=== PATIENT | female | born 1950 | race Caucasian/White ===

== ENCOUNTER → 2024-03-23 08:02 | Outpatient (REF) | payer OTHER, SELFPAY | LOC: HWRAD 08:02 | PROVIDERS: ATTENDING PHYSICIAN Nurse Practitioner | DX: R60.0 Localized edema (principal) | CPT/HCPCS: 93970 ==

== ENCOUNTER → 2024-03-24 07:40 | Outpatient (REF) | payer OTHER, SELFPAY | LOC: EMG 07:40 | PROVIDERS: ATTENDING PHYSICIAN Nurse Practitioner | DX: G62.9 Polyneuropathy, unspecified (principal); I87.2 Venous insufficiency (chronic) (peripheral) | CPT/HCPCS: 95886; 95911 ==

== ENCOUNTER 2024-05-12 13:21 | Emergency (ER) | payer OTHER, SELFPAY ==
[2024-05-12] VITALS (8 sets, daily range): BP systolic 101–132; BP diastolic 73–82; PULSE 73–96; BMI 21.7
[2024-05-12 14:11] LABS: % Basophils 0.5 % (0-2); % Eosinophils 0.6 % (0-6); % Immature Granulocytes 0.3 % (0-0.5); % Lymphocytes 12.5 % (20.5-51.1); % Monocytes 5.4 % (1.7-9.3); % Neutrophils 80.7 % (42.2-75.2); Absolute Lymphocytes 0.8 10^3/uL (1.2-3.4); Absolute Monocytes 0.4 10^3/uL (0.1-0.6); Absolute Neutrophils 5.3 10^3/uL (1.4-6.5); Hematocrit 35.9 % (37.0-47.0); Hemoglobin 12.9 g/dL (12.0-16.0); Mean Corp Hgb Conc. 35.9 g/dL (33.0-37.0); Mean Corpuscular Hgb 33.8 pg (27.0-31.0); Mean Platelet Volume 10.5 fL (7.4-10.4); Nucleated Red Blood Cells % 0 %; Platelet Count 216 10^3/uL (130-400); Red Blood Cell Count 3.82 10^6/uL (4.20-5.40); Red Cell Dist. Width 11.4 % (11.5-14.5); White Blood Cell Count 6.5 10^3/uL (4.8-10.8)
[2024-05-12 14:37] LABS: ALT (SGPT) 24 U/L (0-35); AST (SGOT) 28 U/L (14-36); Albumin 3.8 g/dl (3.5-5.0); Alkaline Phosphatase 69 U/L (38-126); Blood Urea Nitrogen 17 mg/dl (7-17); Calcium 9.4 mg/dl (8.4-10.2); Carbon Dioxide 24 mmol/L (22-30); Chloride 104 mmol/L (98-107); Estimated Creatinine Clearance 37 ml/min; Glucose 119 mg/dl (70-99); Potassium 4.6 mmol/L (3.5-5.1); Sodium 132 mmol/L (135-145); Total Bilirubin 0.6 mg/dl (0.2-1.3); Total Protein 5.6 g/dl (6.3-8.2); eGFR 43.96
--- NOTE | 2024-05-12 15:39 | ED.GENMED ---
History of Present Illness
General
Chief Complaint: Fainting/Passed Out
Source: patient, family and ambulance crew
Exam Limitations: none
Time Seen by Provider: 05/12/24 15:25
Nursing documentation reviewed up to this point in time: agreed with
History of Present Illness
History of Present Illness:
73-year-old female with a past medical history of hypertension, hyperlipidemia who presents to the emergency department for evaluation after an episode of passing out. Patient reports that she was touring her new home which is under construction.
She says that she began to feel lightheaded and sat down and had witnessed syncope/brief loss of consciousness. She was accompanied by her sister as well as the contractor for the home, EMS was called. Apparently on EMS arrival she was somewhat
pale and nauseated and had low blood pressure with a systolic blood pressure of 87. She was given some IV fluid and IV Zofran and she felt much better and she was transported to the emergency room. Per EMS Accu-Chek in the field was normal. Here
in the emergency room she says she has no complaints. She says she did not have and does not have any chest pain, shortness of breath, palpitations or any other symptoms. She denies any headache or abdominal pain/flank pain. She says she has not
had similar symptoms 'in a very long time, maybe since I was a kid.' She does admit that she only had a glass of orange juice this morning, no other food or drink.
Review of Systems
Review of Systems
All Other Systems: ROS reviewed and negative except as documented in HPI and ROS
Respiratory: Denies trouble breathing
Cardiac: Reports syncope; Denies chest pain or palpitations
ABD/GI: Denies abdominal pain
: Denies flank pain
Musculoskeletal: Denies neck pain or back pain
Neurological: Denies dizzy or headache
Phy Exam
Physical Exam
Physical Exam:
General: Awake, alert, oriented x3; no acute distress
Head: Normocephalic, atraumatic
Eyes: Conjunctiva normal, EOMI, pupils equal round reactive to light bilaterally
Throat: Airway intact, handling secretions
Neck: Trachea midline, supple without meningismus
Lungs: Clear to auscultation bilaterally, no wheezing, rales, rhonchi
Heart: Regular rate and rhythm, no murmurs, gallops, or rubs appreciated
Abd: Soft, non distended, nontender
Neuro: Cranial nerves intact, speech is fluent no dysarthria, motor and sensory function is intact and symmetric upper and lower extremities
Skin: no rash
Extremities: No edema in extremities, equal pulses in all extremities
Scores
Heart Failure Risk
Heart Failure Risk Score: Not Applicable
Heart Score for Chest Pain Patients
STEMI patient?: Not applicable
Withdrawal Assessment of Alcohol
Withdrawal Assessment Completed?: Not applicable
Course
Orders/Labs/Results
Orders:
Orders
05/12/24 13:34
Electrocardiogram (*1) Urgent
Reason for Study: Syncope
EKG- Treatment ONCE
05/12/24 14:01
CMP [Comprehensive Metabolic Panel] Urgent
Complete Blood Count/With Diff Urgent
Abnormal Lab Results
05/12/24
14:01
RBC 3.82 L 10^6/uL
(4.20-5.40)
Hct 35.9 L %
(37.0-47.0)
MCH 33.8 H pg
(27.0-31.0)
RDW 11.4 L %
(11.5-14.5)
MPV 10.5 H fL
(7.4-10.4)
Absolute Lymphs (auto) 0.8 L 10^3/uL
(1.2-3.4)
Neutrophils % 80.7 H %
(42.2-75.2)
Lymphocytes % 12.5 L %
(20.5-51.1)
Sodium 132 L mmol/L
(135-145)
Creatinine 1.3 H mg/dL
(0.6-1.0)
Glucose 119 H mg/dl
(70-99)
Total Protein 5.6 L g/dl
(6.3-8.2)
05/12/24 14:01
05/12/24 14:01
Vital Signs
Initial and Last Documented VS:
Initial Vital Signs
Resp Pulse Ox
45 100
05/12/24 13:29 05/12/24 13:29
Last Documented Vital Signs
Temp Pulse Resp BP Pulse Ox
36.4 C 84 18 101/79 100
05/12/24 13:36 05/12/24 14:30 05/12/24 14:30 05/12/24 14:13 05/12/24 13:45
MDM/Problems Addressed
Differential Diagnosis Includes:
Vasovagal syncope, orthostatic symptoms, dehydration, anemia, electrolyte derangement, dysrhythmia, valvular disease
MDM/Problems Addressed:
73-year-old female presents after a syncopal event this afternoon. No symptoms since arrival in the ER, vital signs normal although she did apparently have soft blood pressure on initial EMS assessment. EKG shows sinus rhythm with no AV block, no
Brugada, no delta wave, normal QTc. Plan to place an IV check labs including a CBC and a CMP. Monitor on telemetry. Reassess after the above.
Labs reviewed: CBC shows no anemia or other clinically significant abnormalities. CMP shows a creatinine of 1.3�unknown baseline. Patient has been asymptomatic since arrival in the ER. Vital signs have been stable. Suspect likely vasovagal
syncope. No clear indication for admission at this point in time I think she is stable for discharge and this is patient's preferred plan. She can follow-up with her primary care physician for repeat blood work to recheck creatinine. She feels
comfortable with this plan. We spoke about return precautions all questions answered.
*Pulse Oximetry
Patient hypoxic: no
*EKG
Interpreted by ED Provider?: Yes
Heart Rate: 72
Rate: normal
Rhythm: sinus
Flint: normal axis
Interval: normal interval
QRS Pattern: normal QRS
Ischemia: no ischemia
*Critical Care Note
Total Time (30-74mins, 75-104mins- exclusive of procedures): Not Applicable
Data Reviewed
Source: patient and family
ED Attending Note
-
Portions of this chart may have been created with voice recognition software.� Occasional wrong word or��sound alike� substitutions may have occurred due to the inherent limitations of voice recognition software.
Discharge Plan
Departure
Patient Disposition: Home (Routine Discharge)
Date of Disposition: 05/12/24
Time of Disposition: 15:47
Patient with high blood pressure during this ER visit?: No
Discharge Problem:
Syncope
Instructions: Syncope (Fainting) (DC)
Referrals:
Scott Whitney MD [Family Provider] - Call in 1-3 days for appt
Activity Restrictions/Additional Instructions:
You should follow-up with your primary doctor within the next week to have repeat blood work. You should make sure that you are eating 3 good meals a day and drink plenty of fluids. You should take your time with changes in position from sitting
to standing. If you have repeat episodes of passing out or if you develop any other symptoms including chest pain, shortness of breath, headache, flank pain or any other complaints you should return immediately to the emergency room to be
reassessed.
Thank you for visiting the Emergency Department at [facility].
1. Please schedule a follow up appointment as directed. Call first thing tomorrow morning to make an appointment.
2. If indicated, please take your medications as instructed and indicated on discharge paperwork.
3. If any of your symptoms do not improve, or persist, or become more severe within 6-12 hours, please return to the emergency department for further care.
4. Please return to the emergency department if you develop a headache, neck pain/stiffness, fever greater than 100.4F, chest pain, shortness of breath, persistent nausea, vomiting, slurred speech, difficulty walking, numbness/tingling, weakness,
signs of infection or any other symptoms that are worrisome to you.
Please call [phone] if you have any questions.
Interventions
Interventions:
*Risk Screen - Suicide Last Done: 05/12/24 13:37
*General Assessment Last Done: 05/12/24 14:09
*Neglect/Abuse Screening Last Done: 05/12/24 13:37
ED- Fall Risk Assessment Last Done: 05/12/24 14:10
*ED COVID-19 Vaccine History Last Done: 05/12/24 14:09
ED- Cardiac Assessment Last Done: 05/12/24 13:41
ED- Neurological Assessment Last Done: 05/12/24 13:42
Discharge Date and Time
Print Language: GREENLANDIC
== END 2024-05-12 16:10 | disposition home or self-care (01) ==
LOC: EMR 13:21
PROVIDERS: Emergency Medicine; EMERGENCY PHYSICIAN Emergency Medicine; FAMILY PHYSICIAN Internal Medicine
DX: R55 Syncope and collapse (principal); I10 Essential (primary) hypertension; E78.00 Pure hypercholesterolemia, unspecified
CPT/HCPCS: 99283; 80053; 85025; 93005

== ENCOUNTER → 2024-07-19 11:25 | Outpatient (REF) | payer OTHER, SELFPAY | LOC: RAD 11:25 | PROVIDERS: ATTENDING PHYSICIAN Internal Medicine | DX: M54.50 Low back pain, unspecified (principal); M54.6 Pain in thoracic spine | CPT/HCPCS: 72072; 72100 ==

== ENCOUNTER → 2024-08-18 15:17 | Outpatient (REF) | payer OTHER, SELFPAY | LOC: WDC 15:17 | PROVIDERS: ATTENDING PHYSICIAN Internal Medicine | DX: Z12.31 Encounter for screening mammogram for malignant neoplasm of breast (principal) | CPT/HCPCS: 77063; 77067 ==

== ENCOUNTER 2025-05-03 12:07 | Outpatient (RCR) | payer OTHER, SELFPAY | END 2025-05-03 23:59 | disposition home or self-care (01) | LOC: RPT 12:07 | PROVIDERS: ATTENDING PHYSICIAN Podiatrist Foot & Ankle Surgery; FAMILY PHYSICIAN Internal Medicine | DX: G62.9 Polyneuropathy, unspecified (principal); Z73.6 Limitation of activities due to disability; R26.2 Difficulty in walking, not elsewhere classified; M62.81 Muscle weakness (generalized) | CPT/HCPCS: 97110; 97112; 97162 ==

== ENCOUNTER 2025-05-09 15:21 | Outpatient (RCR) | payer OTHER, SELFPAY | END 2025-05-09 23:59 | disposition home or self-care (01) | LOC: RPT 15:21 | PROVIDERS: ATTENDING PHYSICIAN Podiatrist Foot & Ankle Surgery; FAMILY PHYSICIAN Internal Medicine | DX: G62.9 Polyneuropathy, unspecified (principal); Z73.6 Limitation of activities due to disability; R26.2 Difficulty in walking, not elsewhere classified; M62.81 Muscle weakness (generalized) | CPT/HCPCS: 97110; 97112 ==

== ENCOUNTER → 2025-08-21 14:34 | Outpatient (REF) | payer OTHER, SELFPAY | LOC: WDC 14:34 | PROVIDERS: ATTENDING PHYSICIAN Nurse Practitioner | DX: Z12.31 Encounter for screening mammogram for malignant neoplasm of breast (principal); Z12.39 Encounter for other screening for malignant neoplasm of breast | CPT/HCPCS: 77063; 77067 ==